=== PATIENT | female | born 1965 | race Caucasian/White ===

== ENCOUNTER 2023-05-10 13:37 | Outpatient (OUT) | payer OTHER, SELFPAY ==
--- NOTE | 2023-05-10 13:48 | MM_ITS ---
Patient: JAMES SANCHEZ Exam Date: 05/10/2023 : 1965 Gender:F Ordering : DR MAXIMO GANNON Admission #: [id number] Family : Order #: [id number] CLICK HERE TO VIEW EXAM RADIOLOGY REPORT PROCEDURE: MM TOMOSYNTHESIS SCREENING BI COMPARISON: MG MAMM SCREEN JESSICA W CAD, 06/17/2020. MG MAMM SCREEN 3D JESSICA CAD, 02/26/2022. INDICATIONS: Screening Calculator Name NCI Breast Cancer Risk Assessment Tool 5 Year Breast Cancer Risk 2.40% Lifetime Breast Cancer Risk 14.20% Personal Breast Cancer No Personal Ovarian Cancer No Treatments None Family Cancers Mother with breast cancer at age 67. LOCATION: [facility] BREAST COMPOSITION: Scattered areas fibroglandular density. FINDINGS: DIAGNOSTIC CATEGORY 1--NEGATIVE. NO CHANGE FROM COMPARISON ASSESSMENT. Scattered benign-appearing calcifications are present. Scattered benign-appearing lymph nodes are present. RIGHT BREAST: No significant suspicious finding. LEFT BREAST: No significant suspicious finding. RECOMMENDATIONS: ROUTINE MAMMOGRAM AND CLINICAL EVALUATION IN 12 MONTHS. PLEASE NOTE: A NORMAL MAMMOGRAM DOES NOT EXCLUDE THE POSSIBILITY OF BREAST CANCER. A CLINICALLY SUSPICIOUS PALPABLE LUMP SHOULD BE BIOPSIED. Dictated by: Dagoberto Cook MD on 05/10/2023 at 15:39 Approved by: Dagoberto Cook MD on 05/10/2023 at 15:43
== END 2023-05-10 13:38 | disposition home or self-care (01) ==
LOC: MAMMO 13:41
PROVIDERS: PCP Family Medicine; Visit Provider Family Medicine
DX: Z12.31 Encounter for screening mammogram for malignant neoplasm of breast (principal); Z80.3 Family history of malignant neoplasm of breast
CPT/HCPCS: 77063; 77067

== ENCOUNTER 2023-07-23 19:46 | Emergency (ER) | payer OTHER, SELFPAY ==
[2023-07-23 19:48] VITALS: BP 149/92; PULSE 61; RESP 16; TEMP 36.6; O2SAT 98; BMI 24.1
--- NOTE | 2023-07-23 19:53 | ED.GENADUL1 ---
HPI - General Adult General Chief complaint: Headache Stated complaint: headache Time Seen by Provider: 07/23/23 19:50 History of Present Illness HPI narrative: 58-year-old female presents to the emergency department for headache. It's on the left side of her head and she's had for three or four days. No trauma fever or stiff neck. She has a history of migraine headaches and has had previous CAT scan. She sees a neurologist for these headaches. Related Data Previous Rx's Medication Instructions Recorded xixctqyofd-ifjgxbctzzajw-jyvgpfei 1 cap PO Q6H PRN pain 5 days #20 07/23/23 50 mg-300 mg-40 mg capsule caps (Fioricet) Allergies Allergy/AdvReac Type Severity Reaction Status Date / Time iodine Allergy Verified 07/23/23 19:51 Review of Systems ROS Narrative A ten point review of systems is negative except as noted above. PFSH PFSH Social History Smoking status: Current every day smoker Exam Narrative Exam Narrative: Nurses note and vital signs reviewed and patient is not hypoxic. General: The patient appears well and in no apparent distress. Patient is resting comfortably on cart. Skin: Warm, dry, no pallor noted. There is no rash noted. Head: Normocephalic, atraumatic, neck supple, no nuchal rigidity Eye: Normal conjunctiva, no drainage, EOMI. PERRL Ears, Nose, Mouth, and Throat: oral mucosa is moist. Nares patent. Cardiovascular: Regular Rate and Rhythm Respiratory: Patient is in no distress, no accessory muscle use, lungs are clear to auscultation, no wheezing, rales or rhonchi Back: non-tender, no CVA tenderness bilaterally to percussion. GI: no tenderness to palpation, no masses appreciated. No rebound, guarding, or rigidity noted. Musculoskeletal: The patient has no evidence of calf tenderness, no pitting edema, symmetrical pulses noted bilaterally Neurological: A&O, normal speech Psychiatric: Cooperative Constitutional Vital Signs, click to edit/add: Last Vital Signs Temp 97.9 F 07/23/23 19:48 Pulse 61 07/23/23 19:48 Resp 16 07/23/23 19:48 BP 149/92 H 07/23/23 19:48 Pulse Ox 98 07/23/23 19:48 Course Vital Signs Vital signs: Vital Signs Temperature 97.9 F 07/23/23 19:48 Pulse Rate 61 07/23/23 19:48 Respiratory Rate 16 07/23/23 19:48 Blood Pressure 149/92 H 07/23/23 19:48 Pulse Oximetry 98 07/23/23 19:48 Temperature 97.9 F 07/23/23 19:48 Pulse Rate 61 07/23/23 19:48 Respiratory Rate 16 07/23/23 19:48 Blood Pressure 149/92 H 07/23/23 19:48 Pulse Oximetry 98 07/23/23 19:48 Medical Decision Making MDM Narrative Medical decision making narrative: her CAT scan is negative and she is feeling improved and she is able to be discharged home. Treatment diagnosis and follow-up were discussed with the patient and her . Differential Diagnosis Differential Diagnosis: intracranial hemorrhage, meningitis, migraine headache Imaging Data CT scan - head: Radiologist's impression: Procedure: CT head/brain wo con EXAM: CT head/brain wo con HISTORY: Headache COMPARISON: None. TECHNIQUE: Axial CT scans through the head were obtained without IV contrast administration. Dose reduction techniques were achieved by using: automated exposure control and/or adjustment of mA and /or kV according to patient size and/or use of iterative reconstruction technique. FINDINGS: There is no acute intracranial hemorrhage or abnormal extra-axial fluid collection. No mass effect or midline shift is seen. There is no evidence of large acute territorial infarction. There is no hydrocephalus. To the limit of CT, the posterior fossa appears unremarkable. The calvaria and extra cranial soft tissues are unremarkable. The visualized orbits show no abnormal mass. The visualized paranasal sinuses show no air-fluid level. Mastoid air cells are clear. IMPRESSION: No acute intracranial process. Electronically authenticated by: NADIA BEACH Date: 07/23/2023 22:19 Discharge Plan Discharge Chief Complaint: Headache Clinical Impression: Headache Patient Disposition: Home, Self-Care Time of Disposition Decision: 22:37 Condition: Good Mode of Transportation: Private Vehicle Prescriptions / Home Meds: New ohwchtpbaw-imxlpscpyyfby-wpxe [Fioricet] 50-300-40 mg capsule 1 cap PO Q6H PRN (Reason: pain) 5 Days Qty: 20 0RF Instructions: Acute Headache (ED) Stand Alone Forms: Portal Instructions Referrals: MAXIMO GANNON [Primary Care Provider] - 1 week
[2023-07-23] MEDS: ONDANSETRON PF 4 MG/2 ML VIAL IV (20:16)
[2023-07-23] MEDS: 0.9 % SODIUM CHLORIDE 1,000 ML 1000 ML IV (20:16)
[2023-07-23] MEDS: KETOROLAC TROMETHAMINE 30 MG/ML VIAL IVP (20:17)
[2023-07-23] MEDS: METHYLPREDNISOLONE SOD SUCC PF 125 MG/2 ML VIAL IVP (20:17)
--- NOTE | 2023-07-23 21:17 | CT_ITS ---
The [address] [address] Patient Name: JAMES SANCHEZ MRN: [id number] date: 1965 Sex: F Assigned Patient Location: ER Current Patient Location: ER Accession/Order Number: [id number] Exam Date: 07/23/2023 21:50 Report Date: 07/23/2023 22:19 At the request of: MADINA SIMPSON Procedure: CT head/brain wo con EXAM: CT head/brain wo con HISTORY: Headache COMPARISON: None. TECHNIQUE: Axial CT scans through the head were obtained without IV contrast administration. Dose reduction techniques were achieved by using: automated exposure control and/or adjustment of mA and /or kV according to patient size and/or use of iterative reconstruction technique. FINDINGS: There is no acute intracranial hemorrhage or abnormal extra-axial fluid collection. No mass effect or midline shift is seen. There is no evidence of large acute territorial infarction. There is no hydrocephalus. To the limit of CT, the posterior fossa appears unremarkable. The calvaria and extra cranial soft tissues are unremarkable. The visualized orbits show no abnormal mass. The visualized paranasal sinuses show no air-fluid level. Mastoid air cells are clear. CT/CT head/brain wo con IMPRESSION: No acute intracranial process. Electronically authenticated by: NADIA BEACH Date: 07/23/2023 22:19
[2023-07-23] MEDS: MORPHINE SULFATE 4 MG/ML VIAL IV (21:53)
== END 2023-07-23 22:48 | disposition home or self-care (01) ==
PROVIDERS: Emergency Provider Emergency Medicine; PCP Family Medicine
DX: R51.9 Headache, unspecified (principal); F17.200 Nicotine dependence, unspecified, uncomplicated
CPT/HCPCS: 70450; 96374; 96375; 99284; J2930

== ENCOUNTER 2024-05-03 09:12 | Emergency (ER) | payer BC, SELFPAY ==
[2024-05-03 09:26] VITALS: BP 128/70; PULSE 75; TEMP 36.9; O2SAT 98; BMI 24.4
--- NOTE | 2024-05-03 10:13 | ED_ITS ---
HPI HPI - General Adult General Chief complaint: Fall Stated complaint: RIB PAIN-TRAUMATIC, SOB Time Seen by Provider: 05/03/24 09:44 Source: patient Mode of arrival: walk-in History of Present Illness HPI narrative: 59-year-old female to the emergency department with chief complaint of severe headache, neck pain, right-sided rib pain after a fall. She is not on any blood thinning medications. She reports that she was wearing flip-flops and she tripped while walking downhill. She fell onto her right side. She did not lose consciousness. She reports that she has had a severe persistent headache since the fall. She reports some midline lower neck pain. She reports some pain in her right-sided ribs and makes it hard for her to take a deep breath or move her right arm. She denies any other injuries. Related Data Home Medications ?Medication ?Instructions ?Recorded ?Confirmed aripiprazole 5 mg tablet 5 mg PO DAILY 05/03/24 05/03/24 metoprolol succinate 50 mg 50 mg PO DAILY 05/03/24 05/03/24 tablet,extended release 24 hr rimegepant 75 mg disintegrating 75 mg PO PRN migraine headache 05/03/24 tablet (Nurtec ODT) Previous Rx's ?Medication ?Instructions ?Recorded amoxicillin 875 mg-potassium 1 tab PO Q12H #14 tabs 05/03/24 clavulanate 125 mg tablet cyclobenzaprine 10 mg tablet 10 mg PO BID PRN muscle spasm #10 05/03/24 tabs lidocaine 5 % topical patch See Rx Instructions topical 05/03/24 (Lidoderm) .COMPLEX #15 ea naproxen 500 mg tablet 500 mg PO BID PRN pain #14 tabs 05/03/24 Allergies Allergy/AdvReac Type Severity Reaction Status Date / Time iodine Allergy Verified 07/23/23 19:51 Opioid HPI Opioid Management Most Recent Opioid Data: No Data to Display Review of Systems ROS Status of ROS 10 or more systems reviewed and unremark able except as noted in history and below PFSH PFSH Social History Smoking status: Current every day smoker Exam Narrative Exam Narrative: VITALS: I have reviewed the triage vital signs. GENERAL: Well developed, well appearing adult female in no acute distress. NEURO: Alert and oriented. Moves all extremities. Face is symmetric and expressive. Normal gait. EYES: PERRL. No scleral icterus or conjunctival injection. No discharge. HENT: Normocephalic, atraumatic. Hearing is grossly intact. Nares grossly patent and without discharge. Mucous membranes moist. NECK: No JVD. Patient moves neck without restriction. Lower cervical midline tenderness. Pain with range of motion. CARDIO: Rhythm regular. Normal rate. No murmur, rub, or gallop. Pulses equal bilaterally in the upper and lower extremity. No lower extremity edema. PULM: Lungs clear to auscultation in all colmenares. No wheezes, rales, or rhonchi. No conversational dyspnea. No splinting, stridor, or accessory muscle use. Pain in the right upper lateral ribs. GI/: Abdomen is soft and non-tender. Normoactive bowel sounds. EXTREMITIES: Symmetric muscle bulk. No joint swelling. No clubbing, cyanosis, or deformity. SKIN: Warm and dry. Normal turgor. No rash or lesions appreciated. PSYCH: Mood, affect, and interaction is appropriate to the setting. Constitutional Vital Signs, click to edit/add: Last Vital Signs Temp 98.5 F 05/03/24 09:26 Pulse 64 05/03/24 11:49 Resp 18 05/03/24 11:49 BP 136/73 05/03/24 11:49 Pulse Ox 100 05/03/24 11:49 O2 Del Method Room Air 05/03/24 11:49 Course Vital Signs Vital signs: Vital Signs Temperature 98.5 F 05/03/24 09:26 Pulse Rate 75 05/03/24 09:26 Respiratory Rate 16 05/03/24 09:26 Blood Pressure 128/70 05/03/24 09:26 Pulse Oximetry 98 05/03/24 09:26 Oxygen Delivery Method Room Air 05/03/24 09:26 Temperature 98.5 F 05/03/24 09:26 Pulse Rate 64 05/03/24 11:49 Respiratory Rate 18 05/03/24 11:49 Blood Pressure 136/73 05/03/24 11:49 Pulse Oximetry 100 05/03/24 11:49 Oxygen Delivery Method Room Air 05/03/24 11:49 Medical Decision Making MDM Narrative Medical decision making narrative: 59-year-old female to the emergency department with chief complaint of accidental fall. Severe headache, neck pain, right rib pain. Vital stable, the patient is afebrile. CT head, cervical spine and chest were ordered to evaluate for acute fractures or intracranial injury. She declines any pain medication. Patient agrees with this plan. CT head: Negative CT C-spine: Negative CT chest: Negative for acute fracture. There are some liver cysts. There are bilateral small infiltrates with effusion. Discussed findings with the patient. Possible early pneumonia in the setting of decreased inspiratory volume. Will treat with Augmentin. Flexeril, naproxen, Lidoderm patches for her rib contusion. She will follow-up with her PCP about her visit and incidental findings. Return precautions were discussed. All questions were answered. The patient was discharged home. [facility] DATA #415 - Emergency Medicine: Utilization of CT for Minor Blunt Head Trauma (Adult) [x] Patient is 18 or older, presenting with minor blunt head trauma. Head CT (including cosigned orders) was ordered by an emergency foster care social worker for trauma because (select one or more): [SATISFIES MIPS PERFORMANCE] Reasons: [x] Patient has severe headache Medical Records Medical records reviewed: Yes I reviewed the patient's medical records Imaging Data CT scan - head: Radiologist's impression: ITS Impressions Cervical Spine CT 05/03/24 10:32 IMPRESSION: Moderate degenerative changes C5-C6 Loss of lordosis with no acute fracture Electronically authenticated by: ROSIE CINTRON Date: 05/03/2024 11:[address] 05/03/24 10:32 IMPRESSION: No acute rib fracture Mild bibasilar infiltrates with tiny right pleural effusion Electronically authenticated by: ROSIE CINTRON Date: 05/03/2024 11:[address] 05/03/24 10:32 IMPRESSION: No acute intracranial abnormality Electronically authenticated by: ROSIE CINTRON Date: 05/03/2024 11:18 Discharge Plan Discharge Stand Alone Forms: Portal Instructions Chief Complaint: Fall Clinical Impression: Contusion of rib on right side, Pneumonia, Concussion Patient Disposition: Home, Self-Care Time of Disposition Decision: 11:43 Condition: Good Mode of Transportation: Private Vehicle Prescriptions / Home Meds: New cyclobenzaprine 10 mg tablet 10 mg PO BID PRN (Reason: muscle spasm) Qty: 10 0RF lidocaine [Lidoderm] 5 % adhesive patch,medicated See Rx Instructions .ROUTE .COMPLEX Qty: 15 0RF Rx Instructions: leave on most painful area for up to 12 hrs naproxen 500 mg tablet 500 mg PO BID PRN (Reason: pain) Qty: 14 0RF amoxicillin-pot clavulanate 875-125 mg tablet 1 tab PO Q12H Qty: 14 0RF No Action Nurtec ODT 75 mg tablet,disintegrating 75 mg PO PRN (Reason: migraine headache) metoprolol succinate 50 mg tablet extended release 24 hr 50 mg PO DAILY aripiprazole 5 mg tablet 5 mg PO DAILY Print Language: Palestinian Additional Instructions: Call the office of your primary care doctor to arrange for follow-up within the above-stated timeframe. Your ED visit was focused on your acute issue and does not replace primary care. You should review your labs, imaging, and diagnoses from this ED visit with your primary care physician. There may be non-emergent/ incidental findings that need further evaluation. You should review your vital signs including blood pressure with your PCP. If you were prescribed medications you should discuss possible side-effects and drug interactions with your pharmacist. Call 911 or go to the nearest Emergency Department if you develop any new or worsening symptoms. Seek immediate medical attention if you develop: worsening shortness of breath, difficulty breathing, chest pain, nausea, vomiting, weakness, numbness, tingling, excessive sweating, loss of motion in your arms or legs, or any new or worsening symptoms. Referrals: MAXIMO GANNON [Primary Care Provider] - 1 week Discharge Date/Time: 05/03/24 11:53
--- NOTE | 2024-05-03 10:32 | CT_ITS ---
The [address] [address] Patient Name: JAMES PORTER MRN: [id number] date: 1965 Sex: F Assigned Patient Location: ER Current Patient Location: ER Accession/Order Number: [id number] Exam Date: 05/03/2024 10:23 Report Date: 05/03/2024 11:15 At the request of: MYRTLE OVIEDO Procedure: CT cervical spine wo con PROCEDURE: CT cervical spine wo con COMPARISON: None. HISTORY: neck pain, fall TECHNIQUE: Axial, Coronal, and Sagittal CT images obtained without IV contrast. Dose reduction techniques were achieved by using automated exposure control and/or adjustment of mA and/or kV according to patient size and/or use of iterative reconstruction technique. FINDINGS: PARASPINAL AREA: Normal with no visible mass. DISCS: Moderate disc space narrowing C5-C6 BONES: Loss of normal cervical lordosis with no acute fracture or spondylolisthesis. Mild degenerative spondylosis anterior and posterior C5-C6 OTHER: Negative. CT/CT cervical spine wo con IMPRESSION: Moderate degenerative changes C5-C6 Loss of lordosis with no acute fracture Electronically authenticated by: ROSIE CINTRON Date: 05/03/2024 11:15
--- NOTE | 2024-05-03 10:32 | CT_ITS ---
The [address] [address] Patient Name: JAMES PORTER MRN: [id number] date: 1965 Sex: F Assigned Patient Location: ER Current Patient Location: ER Accession/Order Number: [id number] Exam Date: 05/03/2024 10:23 Report Date: 05/03/2024 11:12 At the request of: MYRTLE OVIEDO Procedure: CT chest wo con EXAMINATION: CT chest wo con HISTORY: right sided rib pain, fall COMPARISON: No relevant comparison available. TECHNIQUE: Multi-planar CT images were created with IV contrast. Axial, Coronal, and Sagittal images. Dose reduction techniques were achieved by using automated exposure control and/or adjustment of mA and/or kV according to patient size and/or use of iterative reconstruction technique. FINDINGS: LUNGS: Mild dependent atelectasis. PLEURA: 5 mm right pleural effusion VASCULATURE: No abnormality. AIDAN: No mass or adenopathy. MEDIASTINUM: No mass or adenopathy. CARDIAC: No enlargement or pericardial effusion Coronary arteries: Absent calcifications AORTA: No aneurysm or dissection. CHEST WALL: No mass or axillary adenopathy. BONES: No bone lesion or fracture. LIMITED ABDOMEN: Innumerable hypodensities throughout the liver, the larger lesions are likely cysts OTHER: Negative. CT/CT chest wo con IMPRESSION: No acute rib fracture Mild bibasilar infiltrates with tiny right pleural effusion Electronically authenticated by: ROSIE CINTRON Date: 05/03/2024 11:12
--- NOTE | 2024-05-03 10:32 | CT_ITS ---
The [address] [address] Patient Name: JAMES PORTER MRN: [id number] date: 1965 Sex: F Assigned Patient Location: ER Current Patient Location: ER Accession/Order Number: [id number] Exam Date: 05/03/2024 10:23 Report Date: 05/03/2024 11:18 At the request of: MYRTLE OVIEDO Procedure: CT head/brain wo con EXAMINATION: CT head/brain wo con, 05/03/2024 10:23 AM EDT HISTORY: head injury, severe headache COMPARISON: None. TECHNIQUE: CT scan of the head was performed without IV contrast. CT dose reduction technique was used, including Automated Exposure Control. FINDINGS: BRAIN: No edema, hemorrhage, mass, acute infarction, or inappropriate atrophy. CSF SPACES: No hydrocephalus, subarachnoid hemorrhage, or mass. Appropriate for age. SKULL: No fracture, mass, or other significant visible lesion. SINUSES: No significant mucosal thickening or fluid on the limited views. ORBITS: No appreciable abnormality on the limited views. OTHER: Negative CT/CT head/brain wo con IMPRESSION: No acute intracranial abnormality Electronically authenticated by: ROSIE CINTRON Date: 05/03/2024 11:18
[2024-05-03 11:49] VITALS: BP 136/73; PULSE 64; O2SAT 100
== END 2024-05-03 11:53 | disposition home or self-care (01) ==
PROVIDERS: Emergency Provider Student in an Organized Health Care Education/Training Program; PCP Family Medicine
DX: S06.0X0A Concussion without loss of consciousness, initial encounter (principal); S20.211A Contusion of right front wall of thorax, initial encounter; J18.9 Pneumonia, unspecified organism; W01.10XA Fall on same level from slipping, tripping and stumbling with subsequent striking against unspecified object, initial encounter; F17.200 Nicotine dependence, unspecified, uncomplicated
CPT/HCPCS: 70450; 71250; 72125; 99284

== ENCOUNTER 2024-05-15 15:43 | Outpatient (OUT) | payer BC, SELFPAY ==
--- NOTE | 2024-05-15 15:50 | MM_ITS ---
Patient Name: JAMES PORTER MR#: [id number] : 1965 Exam Date: 05/15/2024 Ordering Doctor: DR MAXIMO GANNON RADIOLOGY REPORT PROCEDURE: MM TOMOSYNTHESIS SCREENING BI COMPARISON: MG MAMM SCREEN 3D JESSICA CAD, 02/26/2022. MM TOMOSYNTHESIS SCREENING BI, 05/10/2023. INDICATIONS: Screening Calculator Name NCI Breast Cancer Risk Assessment Tool 5 Year Breast Cancer Risk 2.50% Lifetime Breast Cancer Risk 13.80% Personal Breast Cancer No Personal Ovarian Cancer No Treatments None Family Cancers Mother with breast cancer at age 67. LOCATION: [facility] BREAST COMPOSITION: There are scattered areas of fibroglandular density. FINDINGS: DIAGNOSTIC CATEGORY 1--NEGATIVE. NO CHANGE FROM COMPARISON ASSESSMENT. Scattered benign-appearing calcifications are present. Scattered benign-appearing lymph nodes are present. RIGHT BREAST: No significant suspicious finding. LEFT BREAST: No significant suspicious finding. RECOMMENDATIONS: ROUTINE MAMMOGRAM AND CLINICAL EVALUATION IN 12 MONTHS. PLEASE NOTE: A NORMAL MAMMOGRAM DOES NOT EXCLUDE THE POSSIBILITY OF BREAST CANCER. A CLINICALLY SUSPICIOUS PALPABLE LUMP SHOULD BE BIOPSIED. Dictated by: Dagoberto Cook MD on 05/16/2024 at 07:32 Approved by: Dagoberto Cook MD on 05/16/2024 at 07:35
== END 2024-05-15 15:44 | disposition home or self-care (01) ==
LOC: MAMMO 15:44
PROVIDERS: PCP Family Medicine; Visit Provider Family Medicine
DX: Z12.31 Encounter for screening mammogram for malignant neoplasm of breast (principal); Z80.3 Family history of malignant neoplasm of breast
CPT/HCPCS: 77063; 77067